=== PATIENT | female | born 1960 | race Two or more races ===

== ENCOUNTER 2020-07-29 07:04 | Outpatient (REF) | payer OTHER, SELFPAY ==
[2020-07-29 08:02] LABS: Hemoglobin 14.5 g/dl (12.0-16.0); Mean Corpuscular HGB Conc 33.7 g/dl (31.0-35.0); Mean Corpuscular Hemoglobin 28.3 pg (27.0-33.0); Mean Platelet Volume 10.9 fL (9.4-12.3); Platelet Count 206 X10*3/uL (160-400); Red Blood Count 5.12 X10*6/uL (4.20-5.50); Red Cell Distribution Width 12.6 % (11.0-16.0); White Blood Count 3.4 X10*3/uL (4.8-10.8)
[2020-07-29 08:23] LABS: Alanine Aminotransferase 33 U/L (0-31); Albumin Level 4.2 g/dL (3.5-5.0); Alkaline Phosphatase 65 U/L (39-117); Anion Gap 13 (12-20); Aspartate Amino Transferase 22 U/L (5-31); Bilirubin Total 0.8 mg/dL (0.0-1.0); Blood Urea Nitrogen 14 mg/dL (9-16); Carbon Dioxide 30 mmol/L (22-29); Chloride 103 mmol/L (96-108); Estimated Glomerular Filt Rate > 60; Glucose Fasting 134 mg/dL (60-99); Potassium 4.5 mmol/L (3.3-5.1); Sodium 141 mmol/L (135-145); Total Protein 7.4 g/dL (6.5-8.0)
[2020-08-02 12:27] LABS: Vitamin D 25-OH, D2 7 ng/mL; Vitamin D 25-OH, D3 21 ng/mL; Vitamin D 25-OH, Total 28 ng/mL (30-100)
== END 2020-07-29 07:05 | disposition home or self-care (01) ==
LOC: HO.LAB 07:04
PROVIDERS: PCP Internal Medicine; Visit Provider Internal Medicine
DX: G57.10 Meralgia paresthetica, unspecified lower limb (principal); E55.9 Vitamin D deficiency, unspecified
CPT/HCPCS: 36415; 80053; 82306; 85027

== ENCOUNTER → 2020-08-08 08:20 | Outpatient (BNV) | payer OTHER, SELFPAY | PROVIDERS: PCP Internal Medicine; Referring Provider Internal Medicine; Visit Provider Internal Medicine | DX: D72.819 Decreased white blood cell count, unspecified (principal) | CPT/HCPCS: 99203; 99213; 99441 ==

== ENCOUNTER 2020-09-09 07:47 | Outpatient (REF) | payer OTHER, SELFPAY ==
[2020-09-09 08:45] LABS: Alanine Aminotransferase 36 U/L (0-31); Albumin Level 4.3 g/dL (3.5-5.0); Alkaline Phosphatase 70 U/L (39-117); Anion Gap 14 (12-20); Aspartate Amino Transferase 24 U/L (5-31); Bilirubin Total 0.6 mg/dL (0.0-1.0); Blood Urea Nitrogen 20 mg/dL (9-16); Calcium 8.8 mg/dL (8.4-10.2); Carbon Dioxide 27 mmol/L (22-29); Chloride 104 mmol/L (96-108); Estimated Glomerular Filt Rate > 60; Glucose Fasting 128 mg/dL (60-99); Potassium 4.7 mmol/L (3.3-5.1); Sodium 140 mmol/L (135-145); Total Protein 7.7 g/dL (6.5-8.0)
[2020-09-09 08:50] LABS: Estimated Average Glucose 126 mg/dL
== END 2020-09-09 07:48 | disposition home or self-care (01) ==
LOC: HO.LAB 07:47
PROVIDERS: PCP Internal Medicine; Visit Provider Internal Medicine
DX: E11.40 Type 2 diabetes mellitus with diabetic neuropathy, unspecified (principal)
CPT/HCPCS: 36415; 80053; 83036

== ENCOUNTER 2021-01-06 07:03 | Outpatient (REF) | payer OTHER, SELFPAY ==
[2021-01-06 08:20] LABS: MANUAL DIFF FLAG NO
[2021-01-06 08:25] LABS: Basophils Percent Auto 0.8 % (0-2); Eosinophils Absolute Auto 0.1 X10*3/uL (0.0-0.4); Eosinophils Percent Auto 1.6 % (0-4); Hematocrit 43.2 % (37-47); Hemoglobin 14.7 g/dl (12.0-16.0); Imm Gran Abs Auto 0.01 X10*3/uL (0.00-0.03); Imm Gran Pct Auto 0.3 % (0.0-0.4); Lymphocytes Absolute Auto 1.3 X10*3/uL (1.2-4.9); Lymphocytes Percent Auto 34.5 % (20-40); Mean Corpuscular Hemoglobin 28.5 pg (27.0-33.0); Mean Corpuscular Volume 83.7 fL (80-98); Mean Platelet Volume 11.3 fL (9.4-12.3); Monocytes Absolute Auto 0.3 X10*3/uL (0.1-1.2); Monocytes Percent Auto 7.5 % (2-11); Neutrophils Absolute Auto 2.1 X10*3/uL (2.0-8.3); Neutrophils Percent Auto 55.3 % (45-73); Platelet Count 228 X10*3/uL (160-400); Red Blood Count 5.16 X10*6/uL (4.20-5.50); Red Cell Distribution Width 12.8 % (11.0-16.0); White Blood Count 3.7 X10*3/uL (4.8-10.8)
[2021-01-06 08:58] LABS: Alanine Aminotransferase 36 U/L (0-31); Albumin Level 4.4 g/dL (3.5-5.0); Alkaline Phosphatase 66 U/L (39-117); Anion Gap 15 (12-20); Aspartate Amino Transferase 22 U/L (5-31); Bilirubin Total 0.7 mg/dL (0.0-1.0); Blood Urea Nitrogen 15 mg/dL (9-16); Calcium 9.6 mg/dL (8.4-10.2); Carbon Dioxide 26 mmol/L (22-29); Chloride 103 mmol/L (96-108); Cholesterol 195 mg/dL; Estimated Glomerular Filt Rate > 60; Glucose Fasting 114 mg/dL (60-99); HDL Cholesterol 42 mg/dL; LDL Cholesterol Calculated 130 mg/dl; Potassium 4.3 mmol/L (3.3-5.1); Sodium 140 mmol/L (135-145); Total Protein 7.5 g/dL (6.5-8.0); Triglycerides 115 mg/dL
[2021-01-08 08:37] LABS: Folate 18.2 ng/mL (> or = 4.0); Vitamin B12 929 pg/mL (200-900)
[2021-01-10 19:06] LABS: Vitamin D 25-OH, D2 <4 ng/mL; Vitamin D 25-OH, D3 29 ng/mL; Vitamin D 25-OH, Total 29 ng/mL (30-100)
== END 2021-01-06 07:04 | disposition home or self-care (01) ==
LOC: HO.LAB 07:03
PROVIDERS: PCP Internal Medicine; Visit Provider Internal Medicine
DX: E78.5 Hyperlipidemia, unspecified (principal); R73.02 Impaired glucose tolerance (oral); D64.9 Anemia, unspecified; D72.819 Decreased white blood cell count, unspecified; E55.9 Vitamin D deficiency, unspecified; E53.8 Deficiency of other specified B group vitamins
CPT/HCPCS: 36415; 80053; 80061; 82306; 82607; 82746; 85025

== ENCOUNTER 2021-07-14 09:28 | Outpatient (REF) | payer OTHER, SELFPAY ==
[2021-07-14 10:35] LABS: Alanine Aminotransferase 25 U/L (0-31); Albumin Level 4.2 g/dL (3.5-5.0); Alkaline Phosphatase 67 U/L (39-117); Anion Gap 12 (12-20); Aspartate Amino Transferase 20 U/L (5-31); Bilirubin Total 0.9 mg/dL (0.0-1.0); Blood Urea Nitrogen 16 mg/dL (9-16); Calcium 9.5 mg/dL (8.4-10.2); Carbon Dioxide 27 mmol/L (22-29); Chloride 107 mmol/L (96-108); Estimated Glomerular Filt Rate > 60; Glucose Fasting 121 mg/dL (60-99); Potassium 4.1 mmol/L (3.3-5.1); Sodium 142 mmol/L (135-145); Total Protein 7.5 g/dL (6.5-8.0)
[2021-07-14 11:58] LABS: Folate > 20.0 ng/mL (> or = 4.0); Vitamin B12 665 pg/mL (200-900)
[2021-07-18 13:26] LABS: Vitamin D 25-OH, D2 4 ng/mL; Vitamin D 25-OH, D3 22 ng/mL; Vitamin D 25-OH, Total 26 ng/mL (30-100)
== END 2021-07-14 09:29 | disposition home or self-care (01) ==
LOC: HO.LAB 09:28
PROVIDERS: PCP Internal Medicine; Visit Provider Internal Medicine
DX: R73.02 Impaired glucose tolerance (oral) (principal); E53.8 Deficiency of other specified B group vitamins; E55.9 Vitamin D deficiency, unspecified
CPT/HCPCS: 36415; 80053; 82306; 82607; 82746

== ENCOUNTER 2022-02-09 07:50 | Outpatient (REF) | payer OTHER, SELFPAY ==
[2022-02-09 09:56] LABS: Alanine Aminotransferase 30 U/L (0-31); Albumin Level 4.3 g/dL (3.5-5.0); Alkaline Phosphatase 69 U/L (39-117); Anion Gap 14 (12-20); Aspartate Amino Transferase 21 U/L (5-31); Bilirubin Total 0.6 mg/dL (0.0-1.0); Blood Urea Nitrogen 12 mg/dL (9-16); Calcium 9.3 mg/dL (8.4-10.2); Carbon Dioxide 28 mmol/L (22-29); Chloride 104 mmol/L (96-108); Cholesterol 189 mg/dL; Estimated Glomerular Filt Rate > 60; Glucose Fasting 122 mg/dL (60-99); HDL Cholesterol 51 mg/dL; LDL Cholesterol Calculated 124 mg/dl; Potassium 4.6 mmol/L (3.3-5.1); Sodium 141 mmol/L (135-145); Total Protein 7.5 g/dL (6.5-8.0); Triglycerides 70 mg/dL
[2022-02-09 10:24] LABS: Folate 17.2 ng/mL (> or = 4.0); Vitamin B12 391 pg/mL (200-900)
[2022-02-09 10:59] LABS: Vitamin D 25-OH Total 22.2 ng/mL (>30)
== END 2022-02-09 07:51 | disposition home or self-care (01) ==
LOC: HO.LAB 07:50
PROVIDERS: PCP Internal Medicine; Visit Provider Internal Medicine
DX: Z00.00 Encounter for general adult medical examination without abnormal findings (principal); E55.9 Vitamin D deficiency, unspecified; E53.8 Deficiency of other specified B group vitamins
CPT/HCPCS: 36415; 80053; 80061; 82306; 82607; 82746

== ENCOUNTER 2022-03-11 08:57 | Day surgery (SDC) | payer OTHER, SELFPAY ==
[2022-03-05 15:00] VITALS: BMI 33.5
[2022-03-11 11:02] VITALS: BP 190/94; PULSE 71; RESP 18; O2SAT 97
[2022-03-11 11:33] VITALS: BP 174/75; PULSE 69; RESP 18; TEMP 36.6; O2SAT 99
--- NOTE | 2022-03-11 11:33 | MHC.SHP ---
Pre-Procedural Eval Section A Date of Service: 03/11/22 The patient is an INPATIENT: No Changes since office visit: No Cold of Flu in the past 2 weeks, No New Medical Problems, No Changes in Medication and No Patient answered all questions The History & Physical has been completed within 30 days and I have reviewed it.: Yes Section B Chief Complaint: Trigger finger, right ring finger Allergies: Allergies Allergy/AdvReac Type Severity Reaction Status Date / Time No Known Allergies Allergy Verified 03/11/22 11:03 Plan I have reviewed the history and physical and performed a pertinent physical examination on my patient. No changes have occurred unless specified.
[2022-03-11 11:40] VITALS: BP 163/74
--- NOTE | 2022-03-11 12:22 | P.OP_ITS ---
Operative Note Operative Note Date of Service: 03/11/22 Narrative: Operative Note Preop diagnosis: 1. right ring finger Trigger finger Postop diagnosis: 1. right ring finger Trigger finger Procedure: 1. right ring finger A1 cj release Surgeon: Raquel Garcia MD Anesthesia: local block using 1% lidocaine with epinephrine Findings: No locking or catching after A1 cj release EBL: Less than 5 mL Tourniquet time: None Specimens: None Complications: None Disposition: Brought to recovery room in stable condition Plan: Follow-up for 10-14 days for wound check and suture removal Indications: The patient is 62 years old, with a right ring finger trigger finger that has been unresponsive to nonoperative management. The risks and benefits of operative treatment including but not limited to risk of damage to blood vessels, nerves, tendons, infection, persistent pain, persistent symptoms, recurrence or possible need for additional surgery were discussed with the patient and the patient wishes to proceed with surgery. Procedure: Once consent was obtained a local block was performed in the preop area using a combination of 1% lidocaine with epinephrine. The patient was then brought back to the operating suite and placed on the operative table in supine position. A tourniquet was applied to the proximal aspect of the right upper extremity and the limb was prepped and draped in a standard surgical fashion. Once assured that we had a good block, a 1.5 cm oblique incision was made centered over the A1 cj of the right ring finger . The incision was made through the skin to the subcutaneous tissues using a #15 blade. Careful dissection was made down to the level of the A1 cj using tenotomy scissors, with care being taken to protect the nearby neurovascular structures. A longitudinal incision was made in the A1 cj 1st using a #15 blade, then using tenotomy scissors under direct visualization. The A1 cj was noted to be thickened. Following our A1 cj release, we no longer saw any locking or catching of the digit with flexion and extension. Once satisfied with our A1 cj release the wound was copiously irrigated with normal saline and hemostasis was obtained with a brief period of local pressure. The skin edges were reapproximated with some 5.0 nylon suture material and a sterile dressing was applied. The patient appears to have tolerated the procedure well and with no co mplications. All digits were well vascularized at the conclusion of the case.
== END 2022-03-11 12:30 | disposition home or self-care (01) ==
PROVIDERS: PCP Internal Medicine; Visit Provider Orthopaedic Surgery
PROC: (CPT 26055; principal; 2022-03-11 11:20)
DX: M65.341 Trigger finger, right ring finger (principal); E53.8 Deficiency of other specified B group vitamins; E55.9 Vitamin D deficiency, unspecified; R73.02 Impaired glucose tolerance (oral); D72.819 Decreased white blood cell count, unspecified; G57.10 Meralgia paresthetica, unspecified lower limb; Z79.899 Other long term (current) drug therapy
CPT/HCPCS: 26055; J0171

== ENCOUNTER 2022-08-31 09:49 | Outpatient (REF) | payer OTHER, SELFPAY ==
[2022-08-31 10:04] LABS: MANUAL DIFF FLAG NO
[2022-08-31 10:36] LABS: Basophils Percent Auto 0.8 % (0-2); Eosinophils Absolute Auto 0.1 X10*3/uL (0.0-0.4); Eosinophils Percent Auto 1.6 % (0-4); Hematocrit 38.6 % (37.0-47.0); Hemoglobin 12.9 g/dl (12.0-16.0); Imm Gran Abs Auto 0.01 X10*3/uL (0.00-0.03); Imm Gran Pct Auto 0.3 % (0.0-0.4); Lymphocytes Absolute Auto 1.2 X10*3/uL (1.2-4.9); Lymphocytes Percent Auto 31.2 % (20-40); Mean Corpuscular HGB Conc 33.4 g/dl (31.0-35.0); Mean Corpuscular Volume 83.9 fL (80.0-98.0); Mean Platelet Volume 11.3 fL (9.4-12.3); Monocytes Absolute Auto 0.2 X10*3/uL (0.1-1.2); Monocytes Percent Auto 6.5 % (2-11); Neutrophils Absolute Auto 2.2 x10*3/uL (2.0-8.3); Neutrophils Percent Auto 59.6 % (45-73); Platelet Count 203 X10*3/uL (160-400); Red Cell Distribution Width 13.5 % (11.0-16.0); White Blood Count 3.7 X10*3/uL (4.8-10.8)
[2022-08-31 11:17] LABS: Alanine Aminotransferase 47 U/L (0-31); Albumin Level 3.8 g/dL (3.5-5.0); Alkaline Phosphatase 67 U/L (39-117); Anion Gap 11 (12-20); Aspartate Amino Transferase 28 U/L (5-31); Bilirubin Total 0.6 mg/dL (0.0-1.0); Blood Urea Nitrogen 17 mg/dL (9-16); Calcium 8.8 mg/dL (8.4-10.2); Carbon Dioxide 28 mmol/L (22-29); Chloride 104 mmol/L (96-108); Estimated Glomerular Filt Rate > 60; Glucose Fasting 105 mg/dL (60-99); Potassium 4.3 mmol/L (3.3-5.1); Sodium 139 mmol/L (135-145); Total Protein 7.4 g/dL (6.5-8.0)
[2022-08-31 11:36] LABS: Folate 14.1 ng/mL (> or = 4.0); Vitamin B12 512 pg/mL (200-900); Vitamin D 25-OH Total 27.2 ng/mL (>30)
== END 2022-08-31 09:50 | disposition home or self-care (01) ==
LOC: HO.LAB 09:49
PROVIDERS: PCP Internal Medicine; Visit Provider Internal Medicine
DX: E53.8 Deficiency of other specified B group vitamins (principal); R73.02 Impaired glucose tolerance (oral); E55.9 Vitamin D deficiency, unspecified; D64.9 Anemia, unspecified; D72.819 Decreased white blood cell count, unspecified
CPT/HCPCS: 36415; 80053; 82306; 82607; 82746; 85025

== ENCOUNTER 2023-01-25 09:40 | Outpatient (REF) | payer OTHER, SELFPAY ==
[2023-01-25 11:22] LABS: Alanine Aminotransferase 27 U/L (0-31); Albumin Level 4.4 g/dL (3.5-5.0); Alkaline Phosphatase 64 U/L (39-117); Anion Gap 12 (12-20); Aspartate Amino Transferase 21 U/L (5-31); Bilirubin Total 0.8 mg/dL (0.0-1.0); Blood Urea Nitrogen 15 mg/dL (9-16); Carbon Dioxide 28 mmol/L (22-29); Chloride 104 mmol/L (96-108); Cholesterol 206 mg/dL; Estimated Glomerular Filt Rate > 60; Glucose Fasting 129 mg/dL (60-99); HDL Cholesterol 52 mg/dL; LDL Cholesterol Calculated 132 mg/dl; Sodium 140 mmol/L (135-145); Total Protein 7.9 g/dL (6.5-8.0); Triglycerides 112 mg/dL
[2023-01-25 11:37] LABS: Vitamin D 25-OH Total 37.4 ng/mL (>30)
[2023-01-25 11:48] LABS: Folate 14.7 ng/mL (> or = 4.0); Vitamin B12 396 pg/mL (200-900)
== END 2023-01-25 09:41 | disposition home or self-care (01) ==
LOC: HO.LAB 09:40
PROVIDERS: PCP Internal Medicine; Visit Provider Internal Medicine
DX: E55.9 Vitamin D deficiency, unspecified (principal); I10 Essential (primary) hypertension; E53.8 Deficiency of other specified B group vitamins; E78.5 Hyperlipidemia, unspecified
CPT/HCPCS: 36415; 80053; 80061; 82306; 82607; 82746

== ENCOUNTER 2023-01-29 16:37 | Outpatient (AMB) | payer OTHER, SELFPAY ==
[2023-01-29 16:41] VITALS: BP 140/80; BMI 33.5
--- NOTE | 2023-01-29 16:41 | MHC.PC.OV ---
Vital Signs 01/29/23 16:41 Height 5 ft 4 in Weight 195 lb BMI 33.5 BP 140/80 H Blood Pressure Location Lt brachial Position Sitting Intake Visit Reasons: PE Intake Note: Patient here for a physical exam Immigration Case Manager Required: No Accompanied by: Self / Same As Patient Allergies No Known Allergies Allergy (Verified 01/29/23 16:51) Medication List - Last Reconciled 01/29/23 by Cassandra Disla MD cholecalciferol (vitamin D3) 25 mcg PO DAILY 90 days lisinopril 30 mg PO DAILY 90 days Tobacco use date assessed: 09/02/22 Dental Screening Dental Screen Date: 01/29/23 Did you have a dental visit in the last 12 months?: Yes Did you have a dental problem in the last 6 months where you did not have access to dental care?: No Was dental information given to patient?: Patient has dentist HPI HPI Comments History of Present Illness Details This is a 62-year-old female that comes for her physical exam. Mammogram was over a year ago. Has never had a bone density. Last colonoscopy was 2011 and I will order Cologuard. Has impaired glucose tolerance but denies any polyuria, polydipsia or unintentional weight loss. Occasional dizziness that resolved with meclizine. Blood pressure borderline and I will increase lisinopril from 30 mg to 40 mg. Blood pressure will be recheck in 3 weeks by nurse navigator. [facility] Medical History (Updated 01/29/23 @ 17:04 by Cassandra Disla MD) B12 deficiency Hypovitaminosis D Impaired glucose tolerance Leukopenia Meralgia paresthetica Trigger finger Surgical History (Updated 01/29/23 @ 16:55 by Cassandra Disla MD) H/O right knee surgery History of fusion of cervical spine History of tubal ligation Status post excision of lipoma Family History (Updated 01/29/23 @ 16:56 by Cassandra Disla MD) Father Bladder cancer Mother Diabetes Alzheimer's dementia Maternal Grandmother Hypertension Paternal Uncle Bone cancer Sister Stroke Diabetes Daughter Asthma Brother Diabetes Brother Diabetes Social History Household Members: Significant Other, Family and Children Housing: House Alcohol intake: never Patient Tobacco Use Status: Never used Tobacco e-Cigarette/Vaping Use: Never Used Second Hand Smoke Exposure: No service: No Current occupational status: employed Current occupation: rt hand / print shop Current occupational exposures/hazards: No Cognitive needs: No Hearing needs: No Vision needs: No Questionnaire Thrive Questionnaire Date Thrive assessed: 09/02/22 MAYCOL-7 AMB Questionnaire MAYCOL-7 Date MAYCOL - 7 assessed: 09/02/22 Source: Developed by Drs. Jadiel Green, Rosa Maria Gerard, Ronan Caballero and colleagues, with an educational christa from [employer]. Review of Systems Const All systems reviewed & are unremarkable except as noted in HPI and below Eyes Reports no additional complaints, Denies change in vision and Denies other visual disturbances Card Denies chest pain at rest, Denies chest pain with activity, Denies edema, Denies irregular heart rhythm, Denies claudication, Denies dyspnea, Denies dyspnea on exertion, Denies orthopnea, Denies paroxysmal nocturnal dyspnea and Denies slow heart rate Resp Denies cough, Denies dyspnea and Denies dyspnea on exertion GI Denies abdominal pain, Denies change in bowel habits, Denies excessive flatus, Denies nausea and Denies vomiting Denies urinary incontinence, Denies urinary hesitancy and Denies urinary urgency Musc Denies abnormal gait, Denies atrophy, Denies deformity and Denies limited range of motion Skin/Breast Denies bleeding lesions, Denies changing lesions and Denies rash Neuro Denies abnormal gait and Denies lack of coordination Physical exam (Primary Care) Vital Signs: Last Vital Signs BP 140/80 H 01/29/23 16:41 BMI result Body Mass Index 33.5 Tobacco/Smoking Status: Tobacco use Status Tobacco use date assessed 09/02/22 01/29/23 16:46 Patient Tobacco Use Status Never used Tobacco 01/29/23 16:46 e-Cigarette/Vaping Use Never Used 01/29/23 16:46 Thrive Assessment: Date of Thrive Assessment Date Thrive assessed 09/02/22 01/29/23 16:46 Const Orientation/consciousness: patient oriented x3 HENMT Head: Yes normal to inspection, Yes normocephalic and Yes atraumatic Ears: external ears normal Mouth: lip normal Eyes General: appearance normal, both eyes and all related structures Eyelids: Yes eyelids normal Conjunctivae: conjunctivae normal Neck Neck: Yes normal visual inspection and Yes supple Resp Effort & Inspection: normal respiratory effort Auscultation: clear to auscultation bilaterally Cardio Jugular venous distension: no JVD Rate: regular rate Rhythm: regular rhythm Heart sounds: S1 normal heart sound present and S2 normal heart sound present GI Inspection: Yes normal to inspection Palpation (GI): Soft to palpation and nontender Auscultation: normal bowel sounds Skin General skin exam: no rashes or lesions noted Neuro General: patient oriented x3 and no focal motor deficits Extrem General: Yes full ROM Psych Appearance: grossly normal Assessment and Plan Assessment & Plan (1) Encounter for physical examination: Code(s): Z00.00 - Encounter for general adult medical examination without abnormal findings Plan: Repeat in a year Orders: Orders Comprehensive [place]. Panel Fast 4 Months R73.02 - Impaired glucose tolerance (oral) XR DEXA axial skeleton Today N95.9 - Unspecified menopausal and perimenopausal disorder MM screening mammo BI Today Z12.31 - Encounter for screening mammogram for malignant neoplasm of breast XR foot LT 2V Today M79.672 - Pain in left foot Referrals Cologuard Test Z12.11 - Encounter for screening for malignant neoplasm of colon, Z12.12 - Encounter for screening for malignant neoplasm of rectum Medications: New lisinopril 40 mg PO DAILY 90 tabs 1RF 90 days meclizine 25 mg PO DAILY PRN 7 tabs 0RF motion sickness 7 days Discontinued lisinopril Discontinued Reason: Patient Completed Course 30 mg PO DAILY 90 days 90 tabs 1RF Coding Level of Care Code Est Pt Prev Care 40-64y(91593) Diagnoses Encounter for physical examination Z00.00 Time Spent (min) 32
== END 2023-01-29 17:08 | disposition home or self-care (01) ==
PROVIDERS: PCP Internal Medicine; Visit Provider Internal Medicine
DX: Z00.00 Encounter for general adult medical examination without abnormal findings (principal)
CPT/HCPCS: 99396

== ENCOUNTER 2023-02-21 14:14 | Outpatient (REF) | payer OTHER, SELFPAY ==
--- NOTE | ~2023-02-21 | MM_ITS ---
EXAMINATION: BONE DENSITOMETRY CLINICAL INDICATION: Unspecified menopausal and perimenopausal disorder. COMPARISON: Baseline BD dated 02/25/2017. TECHNIQUE: Using a [employer] DXA System (software version: 13.1) manufactured by [employer], dual-energy x-ray absorptiometry was performed of the lumbar spine and left hip. The images are of good technical quality. Summary results are attached. FINDINGS: LEFT FEMUR, NECK: Current: BMD 0.785 g/cm2, Z-score -1.0, T-score -1.8, osteopenia. Baseline: BMD 0.911 g/cm2. LEFT FEMUR, TOTAL: Current: BMD 0.913 g/cm2, Z-score -0.3, T-score -0.8, normal, 8.2% decrease from baseline (<5% change is not significant). Baseline: BMD 0.995 g/cm2. AP SPINE L1-L4: Current: BMD 1.098 g/cm2, Z-score -0.1, T-score -0.7, normal, 6.9% decrease from baseline (<5% change is not significant). Baseline: BMD 1.180 g/cm2. IDENTIFIED RISK FACTORS: Menopause. HISTORY OF FRACTURE: None listed. MEDICATIONS: Vitamin D. MM/XR DEXA axial skeleton IMPRESSION: 1. DIAGNOSIS: Osteopenia based on the lowest T-score value of -1.8 in the femoral neck applying World Health Organization criteria. 2. 10-YEAR FRACTURE RISK PREDICTION, FRAX: Major osteoporotic fracture (clinical spine, forearm, hip or shoulder) 4.9%. Hip fracture 0.6%. 3. Treatment Recommendations: NOF guidelines recommend consideration for treatment in postmenopausal women and men age 50 and older presenting with the following: -A hip or vertebral (clinical or morphometric) fracture. -T-score less than or equal to -2.5 at the femoral neck or spine after appropriate evaluation to exclude secondary causes. -Low bone mass at the hip or spine and a 10-year fracture probability by FRAX of greater than or equal to 3% for hip fracture or greater than or equal to 20% for major osteoporotic fracture based on the [place] adapted WHO algorithm. 4. Other Recommendations: All treatment decisions require clinical judgment and consideration of individual patient factors, including patient preferences, comorbidities, previous drug use, risk factors not captured in the FRAX model (e.g. frailty, falls, vitamin D deficiency, increased bone turnover, interval significant decline in bone density) and possible under or overestimation of fracture risk by FRAX. Additional medical evaluation for secondary cause of low bone mineral density may be appropriate. FUTURE SCAN RECOMMENDATION: People with diagnosed cases of osteoporosis or at high risk for fracture should have regular bone mineral density tests. For patients eligible for Medicare, routine testing is allowed once every 2 years. The testing frequency can be increased to one year for patients who have rapidly progressing disease, those who are receiving or discontinuing medical therapy to restore bone mass, or have additional risk factors.
== END 2023-02-21 14:15 | disposition home or self-care (01) ==
LOC: HO.MAMMO 14:14
PROVIDERS: PCP Internal Medicine; Visit Provider Internal Medicine
DX: Z13.820 Encounter for screening for osteoporosis (principal); Z78.0 Asymptomatic menopausal state
CPT/HCPCS: 77080

== ENCOUNTER → 2023-02-21 14:30 | Outpatient (BNV) | payer OTHER, SELFPAY | PROVIDERS: PCP Internal Medicine; Visit Provider Radiology Diagnostic Radiology | DX: M85.852 Other specified disorders of bone density and structure, left thigh (principal); N95.9 Unspecified menopausal and perimenopausal disorder | CPT/HCPCS: 77080 ==

== ENCOUNTER 2023-03-01 09:38 | Outpatient (REF) | payer OTHER, SELFPAY | END 2023-03-01 09:39 | disposition home or self-care (01) | LOC: HO.MAMMO 09:38 | PROVIDERS: PCP Internal Medicine; Visit Provider Internal Medicine | DX: Z12.31 Encounter for screening mammogram for malignant neoplasm of breast (principal) | CPT/HCPCS: 77063; 77067 ==

== ENCOUNTER → 2023-03-01 10:00 | Outpatient (BNV) | payer OTHER, SELFPAY | PROVIDERS: PCP Internal Medicine; Visit Provider Radiology Diagnostic Radiology | DX: Z12.31 Encounter for screening mammogram for malignant neoplasm of breast (principal) | CPT/HCPCS: 77063; 77067 ==

== ENCOUNTER 2023-06-03 15:37 | Outpatient (AMB) | payer OTHER, SELFPAY ==
--- NOTE | 2023-06-03 15:41 | MHC.PC.OV ---
Vital Signs 06/03/23 15:42 Height 5 ft 4 in Weight 193 lb BMI 33.1 BP 120/80 Blood Pressure Location Lt brachial Position Sitting Intake Visit Reasons: bp Intake Note: Patient here for a follow up BP Interviewing Clerk Required: No Accompanied by: Self / Same As Patient Allergies No Known Allergies Allergy (Verified 06/03/23 15:47) Medication List - Last Reconciled 06/03/23 by Cassandra Disla MD cholecalciferol (vitamin D3) 25 mcg PO DAILY 90 days lisinopril 40 mg PO DAILY 90 days Tobacco use date assessed: 09/02/22 Dental Screening Dental Screen Date: 06/03/23 Did you have a dental visit in the last 12 months?: Yes Did you have a dental problem in the last 6 months where you did not have access to dental care?: No Was dental information given to patient?: Patient has dentist HPI HPI Comments History of Present Illness Details This is a 63-year-old female with hypertension, osteopenia, impaired glucose tolerance and low vitamin-D that comes today for follow-up on her conditions. Blood pressure stable. Vitamin-D levels, lipid panel and fasting blood glucose will be ordered. She denies any polyuria or polydipsia. No unintentional weight loss. Had bone density test showing osteopenia and calcium with vitamin-D will be started. No chest pain or shortness of breath. COUNT INCLUDES [facility] Medical History (Updated 06/03/23 @ 15:58 by Cassandra Disla MD) Trigger finger B12 deficiency Leukopenia Impaired glucose tolerance Meralgia paresthetica Hypovitaminosis D Surgical History H/O right knee surgery History of fusion of cervical spine Status post excision of lipoma History of tubal ligation Family History Father Bladder cancer Mother Diabetes Alzheimer's dementia Maternal Grandmother Hypertension Paternal Uncle Bone cancer Sister Stroke Diabetes Daughter Asthma Brother Diabetes Brother Diabetes Social History Household Members: Significant Other, Family and Children Housing: House Alcohol intake: never Patient Tobacco Use Status: Never used Tobacco e-Cigarette/Vaping Use: Never Used Second Hand Smoke Exposure: No service: No Current occupational status: employed Current occupation: rt hand / print shop Current occupational exposures/hazards: No Cognitive needs: No Hearing needs: No Vision needs: No Questionnaire Thrive Questionnaire Date Thrive assessed: 09/02/22 MAYCOL-7 AMB Questionnaire MAYCOL-7 Date MAYCOL - 7 assessed: 09/02/22 Source: Developed by Drs. Jadiel Green, Rosa Maria Gerard, Ronan Caballero and colleagues, with an educational christa from [employer]. Review of Systems Const All systems reviewed & are unremarkable except as noted in HPI and below Eyes Reports no additional complaints, Denies change in vision and Denies other visual disturbances Card Denies chest pain at rest, Denies chest pain with activity, Denies edema, Denies irregular heart rhythm, Denies claudication, Denies dyspnea, Denies dyspnea on exertion, Denies orthopnea, Denies paroxysmal nocturnal dyspnea and Denies slow heart rate Resp Denies cough, Denies dyspnea and Denies dyspnea on exertion GI Denies abdominal pain, Denies change in bowel habits, Denies excessive flatus, Denies nausea and Denies vomiting Denies urinary incontinence, Denies urinary hesitancy and Denies urinary urgency Musc Denies abnormal gait, Denies atrophy, Denies deformity and Denies limited range of motion Skin/Breast Denies bleeding lesions, Denies changing lesions and Denies rash Neuro Denies abnormal gait, Denies behavioral changes and Denies lack of coordination Psych Denies behavioral changes Physical exam (Primary Care) Vital Signs: Last Vital Signs BP 120/80 06/03/23 15:42 BMI result Body Mass Index 33.1 Tobacco/Smoking Status: Tobacco use Status Tobacco use date assessed 09/02/22 06/03/23 15:42 Patient Tobacco Use Status Never used Tobacco 06/03/23 15:42 e-Cigarette/Vaping Use Never Used 06/03/23 15:42 Thrive Assessment: Date of Thrive Assessment Date Thrive assessed 09/02/22 06/03/23 15:42 Eyes General: appearance normal, both eyes and all related structures Eyelids: Yes eyelids normal Conjunctivae: conjunctivae normal Neck Neck: Yes normal visual inspection and Yes supple Resp Effort & Inspection: normal respiratory effort Auscultation: clear to auscultation bilaterally Cardio Jugular venous distension: no JVD Rate: regular rate Rhythm: regular rhythm Heart sounds: S1 normal heart sound present and S2 normal heart sound present Extrem General: Yes full ROM Office Procedures Flu Questionnaire Does the patient have a severe egg allergy?: No Immunizations flu vacc [id number] 6mos up(PF) 60 mcg(15 mcgx4)/0.5 mL IM syringe Performing Provider: Cassandra Disla MD [facility] Documented (not given) by: Pauly Stanley Luis A on 06/03/23 15:46 Reason Not Given: Patient Refused Assessment and Plan Assessment & Plan (1) Osteopenia: Code(s): M85.80 - Other specified disorders of bone density and structure, unspecified site Qualifiers: Osteopenia location: unspecified Qualified Code(s): M85.80 - Other specified disorders of bone density and structure, unspecified site Plan: Start calcium with vitamin-D. (2) Essential hypertension: Code(s): I10 - Essential (primary) hypertension Plan: Continue lisinopril. Blood pressure goal is equal or less than 130/80. (3) Impaired glucose tolerance: Code(s): R73.02 - Impaired glucose tolerance (oral) Plan: Repeat fasting blood glucose. (4) Hypovitaminosis D: Code(s): E55.9 - Vitamin D deficiency, unspecified Plan: Continue vitamin-D supplements. Orders: Orders Lipid Panel Today E78.5 - Hyperlipidemia, unspecified Influenza [id number] Immunization Today Z23 - Encounter for immunization Vitamin D 25-OH Total Today E55.9 - Vitamin D deficiency, unspecified Comprehensive [place]. Panel Fast Today R73.02 - Impaired glucose tolerance (oral) Vitamin B12 and Folate Today E53.8 - Deficiency of other specified B group vitamins Medications: New calcium carbonate 600 mg PO BID 180 tabs 3RF 90 days M85.80 - Other specified disorders of bone density and structure, unspecified site Refilled cholecalciferol (vitamin D3) 25 mcg PO DAILY 90 caps 1RF 90 days E53.8 - Deficiency of other specified B group vitamins lisinopril 40 mg PO DAILY 90 tabs 1RF 90 days E53.8 - Deficiency of other specified B group vitamins Coding Level of Care Code Est Pt Level 4 (03590) Diagnoses Osteopenia, unspecified location M85.80 Osteopenia location: unspecified Essential hypertension I10 Impaired glucose tolerance R73.02 Hypovitaminosis D E55.9 Time Spent (min) 23
[2023-06-03 15:42] VITALS: BP 120/80; BMI 33.1
== END 2023-06-03 15:53 | disposition home or self-care (01) ==
PROVIDERS: PCP Internal Medicine; Visit Provider Internal Medicine
DX: M85.80 Other specified disorders of bone density and structure, unspecified site (principal); I10 Essential (primary) hypertension; R73.02 Impaired glucose tolerance (oral); E55.9 Vitamin D deficiency, unspecified
CPT/HCPCS: 99214

== ENCOUNTER 2024-02-04 16:39 | Outpatient (AMB) | payer OTHER, SELFPAY ==
[2024-02-04 16:46] VITALS: BP 130/72; BMI 34.5
--- NOTE | 2024-02-04 16:46 | A.OFFPC_ITS ---
Vital Signs 02/04/24 16:46 Height 5 ft 4 in Weight 201 lb BMI 34.5 BP 130/72 Blood Pressure Location Lt brachial Position Sitting Intake Visit Reasons: pe Intake Note: Patient here for a physical exam Nnp Required: No Accompanied by: Self / Same As Patient Allergies No Known Allergies Allergy (Verified 02/04/24 17:06) Medication List - Last Reconciled 02/04/24 by Cassandra Disla MD calcium carbonate 600 mg PO BID 90 days cholecalciferol (vitamin D3) 25 mcg PO DAILY 90 days lisinopril 40 mg PO DAILY 90 days Tobacco use date assessed: 02/04/24 Dental Screening Dental Screen Date: 02/04/24 Did you have a dental visit in the last 12 months?: Yes Did you have a dental problem in the last 6 months where you did not have access to dental care?: No Was dental information given to patient?: Patient has dentist HPI HPI Comments History of Present Illness Details This is a 63-year-old female that comes for her physical exam. Mammogram done 2022 and was normal. Cologuard done 2022 was negative. Pap smear done long time ago with biopsy in 2018. Will be referred to OBGYN for this matter. DEXA scan done 2022 shows osteopenia and is on calcium with vitamin-D. DEXA scan will be repeated 2024. She complains of left knee pain and weakness that started few months ago. No previous trauma. Will be referred to Ortho Hand order an x-ray. COUNTS INCLUDE 234 BEDS AT THE [facility] Medical History (Updated 02/04/24 @ 19:48 by Cassandra Disla MD) Trigger finger B12 deficiency Leukopenia Impaired glucose tolerance Meralgia paresthetica Hypovitaminosis D Surgical History H/O right knee surgery History of fusion of cervical spine Status post excision of lipoma History of tubal ligation Family History Father Bladder cancer Mother Diabetes Alzheimer's dementia Maternal Grandmother Hypertension Paternal Uncle Bone cancer Sister Stroke Diabetes Daughter Asthma Brother Diabetes Brother Diabetes Social History Household Members: Significant Other, Family and Children Housing: House Alcohol intake: never Patient Tobacco Use Status: Never used Tobacco e-Cigarette/Vaping Use: Never Used Second Hand Smoke Exposure: No service: No Current occupational status: employed Current occupation: rt hand / print shop Current occupational exposures/hazards: No Cognitive needs: No Hearing needs: No Vision needs: No Questionnaire PHQ-9 Over the last 2 weeks, how often have you been bothered by any of the following problems? 1. Little interest or pleasure in doing things: not at all 2. Feeling down, depressed, or hopeless: not at all 3. Trouble falling or staying asleep, or sleeping too much: not at all 4. Feeling tired or having little energy: not at all 5. Poor appetite or overeating: not at all 6. Feeling bad about yourself - or that you are a failure or have let yourself or your family down: not at all 7. Trouble concentrating on things, such as reading the newspaper or watching television: not at all 8. Moving or speaking so slowly that other people could have noticed. Or the opposite - being so fidgety or restless that you have been moving around a lot more than usual: not at all 9. Thoughts that you would be better off or of hurting yourself in some way: not at all Total score: 0 Depression Screening Interpretation: Negative Depression Screening Done: Yes 20971 - PHQ-9 Billing: Yes Source: Developed by Drs. Jadiel Green, Rosa Maria Gerard, Ronan Caballero and colleagues, with an educational christa from [employer]. Thrive Questionnaire Date Thrive assessed: 02/04/24 I am a: Patient What is your living situation today?: I have a steady place to live Within the past 12 months, did the food you bought not last and you didn't have the money to get more?: Never true Within the past 12 months, did you worry whether your food would run out before you got money to buy more?: Never true Do you have trouble paying for medicines?: No Do you have trouble getting transportation to medical appointments?: No Do you have trouble paying your heating and electricity bill?: No Do you have trouble taking care of your child, family member or friend?: No Do you have trouble with day-to-day activities such as bathing, preparing meals, shopping, managing finances, etc.?: No Are you currently unemployed and looking for a job?: No Are you interested in more education?: No Please select the resources that you would like help with: None Currently or been in a relationship where the following occur: No concerns reported THRIVE Score: 0 AUDIT C Alcohol Use Questionnaire (AUDIT-C) 1. How often do you have a drink containing alcohol?: Never Total Score: 0 MAYCOL-7 AMB Questionnaire MAYCOL-7 Date MAYCOL - 7 assessed: 02/04/24 Feeling nervous, anxious, or on edge: 0 = Not at all Not being able to stop or control worryin = Not at all Worrying too much about different things: 0 = Not at all Trouble relaxin = Not at all Being so restless that it is hard to sit still: 0 = Not at all Becoming easily annoyed or irritable: 0 = Not at all Feeling afraid as if something awful might happen: 0 = Not at all Total MAYCOL-7 score (0-4 normal; 5-9 mild; 10-14 moderate; 15-21 severe): 0 Source: Developed by Drs. Jadiel Green, Rosa Maria Gerard, Ronan Caballero and colleagues, with an educational christa from [employer]. MAYCOL-7 Assessment Billing MAYCOL-7 Assessment Tool: MAYCOL-7 Assessment 74591 Review of Systems Const All systems reviewed & are unremarkable except as noted in HPI and below Card Denies chest pain at rest, Denies chest pain with activity, Denies edema, Denies irregular heart rhythm, Denies claudication, Denies dyspnea, Denies dyspnea on exertion, Denies orthopnea, Denies paroxysmal nocturnal dyspnea and Denies slow heart rate Resp Denies cough, Denies dyspnea and Denies dyspnea on exertion GI Denies abdominal pain, Denies change in bowel habits, Denies excessive flatus, Denies nausea and Denies vomiting Denies urinary incontinence, Denies urinary hesitancy and Denies urinary urgency Musc Denies abnormal gait, Denies atrophy, Denies deformity and Denies limited range of motion Skin/Breast Denies bleeding lesions, Denies changing lesions and Denies rash Neuro Denies abnormal gait, Denies behavioral changes and Denies lack of coordination Psych Denies behavioral changes Physical exam (Primary Care) Vital Signs: Last Vital Signs BP 130/72 02/04/24 16:46 BMI result Body Mass Index 34.5 Tobacco/Smoking Status: Tobacco use Status Tobacco use date assessed 02/04/24 02/04/24 16:52 Patient Tobacco Use Status Never used Tobacco 02/04/24 16:52 e-Cigarette/Vaping Use Never Used 02/04/24 16:52 PHQ-9: PHQ-9 Score PHQ-9: Total score 0 02/04/24 17:11 Depression Screening Interpretation: Negative Thrive Assessment: Date of Thrive Assessment Date Thrive assessed 02/04/24 02/04/24 16:52 Currently or been in a relationship where the following occur: No concerns reported HENMT Head: Yes normal to inspection, Yes normocephalic and Yes atraumatic Ears: external ears normal Eyes General: appearance normal, both eyes and all related structures Eyelids: Yes eyelids normal Conjunctivae: conjunctivae normal Neck Neck: Yes normal visual inspection and Yes supple Resp Effort & Inspection: normal respiratory effort Auscultation: clear to auscultation bilaterally Cardio Jugular venous distension: no JVD Rate: regular rate Rhythm: regular rhythm Heart sounds: S1 normal heart sound present and S2 normal heart sound present GI Inspection: Yes normal to inspection Palpation (GI): Soft to palpation and nontender Auscultation: normal bowel sounds Skin General skin exam: no rashes or lesions noted Neuro General: no focal motor deficits Extrem General: Yes full ROM Psych Appearance: grossly normal Assessment and Plan Assessment & Plan (1) Encounter for physical examination: Code(s): Z00.00 - Encounter for general adult medical examination without abnormal findings Plan: Repeat in a year. (2) Left knee pain: Code(s): M25.562 - Pain in left knee Plan: X-ray ordered. Referred to Ortho. Orders: Orders Lipid Panel Today E78.5 - Hyperlipidemia, unspecified, Z00.00 - Encounter for general adult medical examination without abnormal findings Vitamin D 25-OH Total Today E55.9 - Vitamin D deficiency, unspecified Comprehensive [place]. Panel Fast Today Z00.00 - Encounter for general adult medical examination without abnormal findings XR knee LT 2V Today M25.562 - Pain in left knee Referrals Orthopedics Referral M25.562 - Pain in left knee EXPERIMENTAL WELDER Referral Z12.4 - Encounter for screening for malignant neoplasm of cervix Coding Level of Care Code Est Pt Level 3 (30843) Est Pt Prev Care 40-64y(23275) Diagnoses Encounter for physical examination Z00.00 Left knee pain M25.562 Additional Codes MAYCOL-7 Assessment Billing - MAYCOL-7 Assessment Tool: MAYCOL-7 Assessment 44188 ([id number]) Time Spent (min) 30
== END 2024-02-04 17:14 | disposition home or self-care (01) ==
PROVIDERS: PCP Internal Medicine; Visit Provider Internal Medicine
DX: Z00.00 Encounter for general adult medical examination without abnormal findings (principal); M25.562 Pain in left knee
CPT/HCPCS: 99213; 99396

== ENCOUNTER 2024-03-03 13:55 | Outpatient (REF) | payer OTHER, SELFPAY ==
--- NOTE | ~2024-03-03 | XR_ITS ---
EXAMINATION: XR KNEE, RIGHT CLINICAL INFORMATION: M25.561 - Pain in right knee COMPARISON: 02/01/2017. TECHNIQUE: AP view of the right knee. FINDINGS: Normal bone mineralization. No fracture, dislocation, or focal bone lesion. Mild to moderate medial and lateral compartment joint space narrowing right knee, with very subtle marginal osteophytes. Mild spurring of the tibial spines. Alignment is normal. Soft tissues appear normal. XR/XR knee RT 1V IMPRESSION: 1. No acute findings right knee. 2. Mild to moderate medial and lateral compartment osteoarthrosis. Electronically signed by: Raciel Berrios MD 05/11/2024 09:42 AM [facility] [place]
--- NOTE | ~2024-03-03 | XR_ITS ---
EXAMINATION: XR KNEE, LEFT CLINICAL INFORMATION: M25.562 - Pain in left knee COMPARISON: None available. TECHNIQUE: Four views of the left knee. FINDINGS: Normal bone mineralization. No fracture, dislocation, or focal bone lesion. Moderate medial and mild to moderate lateral compartment joint space narrowing right knee, with very subtle marginal osteophytes. Mild spurring of the tibial spines. Mild degenerative arthritis patellofemoral joint with small marginal osteophytes. Alignment is normal. No definite joint effusion seen. Soft tissues appear normal. XR/XR knee LT 3V IMPRESSION: 1. No acute findings right knee. 2. Moderate medial and mild lateral and patellofemoral compartment osteoarthrosis. Electronically signed by: Raciel Berrios MD 05/11/2024 09:53 AM [facility]
== END 2024-03-03 13:56 | disposition home or self-care (01) ==
LOC: HO.XRAY 13:55
PROVIDERS: PCP Internal Medicine; Visit Provider Physician Assistant
DX: M17.12 Unilateral primary osteoarthritis, left knee (principal); M25.561 Pain in right knee
CPT/HCPCS: 20610; 73560; 73562; J1010

== ENCOUNTER → 2024-03-03 13:59 | Outpatient (BNV) | payer OTHER, SELFPAY | PROVIDERS: PCP Internal Medicine; Visit Provider Radiology Diagnostic Radiology | DX: M25.562 Pain in left knee (principal); M25.561 Pain in right knee | CPT/HCPCS: 73560; 73562 ==

== ENCOUNTER 2024-03-03 15:24 | Outpatient (AMB) | payer OTHER, SELFPAY ==
--- NOTE | 2024-03-03 15:30 | MHC.OFFVIS ---
Intake Visit Reasons: New prob- Left knee pain Intake Note: Pt presents to the office today for left knee pain. Pt states the pain started 1 month ago with no known injury. Pt states she has some pain when she walks and feels clicking in her knee. Pt states she has difficulty walking up and down stairs. Pt denies any previous surgeries or injections in her left knee. 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 She denies any injury. She states she has pain in her knee that is aggravated with ambulation and stair use. She also reports clicking in her knee. He has not had any treatment in the past. She does not have a history of diabetes. [facility] Medical History Trigger finger B12 deficiency Leukopenia Impaired glucose tolerance Meralgia paresthetica Hypovitaminosis D Surgical History H/O right knee surgery History of fusion of cervical spine Status post excision of lipoma History of tubal ligation Family History Father Bladder cancer Mother Diabetes Alzheimer's dementia Maternal Grandmother Hypertension Paternal Uncle Bone cancer Sister Stroke Diabetes Daughter Asthma Brother Diabetes Brother Diabetes Social History Household Members: Significant Other, Family and Children Housing: House Alcohol intake: never Patient Tobacco Use Status: Never used Tobacco e-Cigarette/Vaping Use: Never Used Second Hand Smoke Exposure: No service: No Current occupational status: employed Current occupation: rt hand / print shop Current occupational exposures/hazards: No Cognitive needs: No Hearing needs: No Vision needs: No Review of Systems Const All systems reviewed & are unremarkable except as noted in HPI and below Physical Exam Extrem Other: Left knee: Skin intact, no erythema or joint effusion. Tenderness along the medial and lateral joint line. Full ROM with crepitus. Negative Bar?s. No ligamentous laxity. NVI. ? Office Procedures Joint Injection/Aspiration Joint Injection/Aspiration Primary Site: left knee Prep: site was prepped using aseptic technique, ethochloride spray was applied and injection warnings given Injected: 80 mg of, DepoMedrol, with 8 mL of, 1% plain lidocaine and in the joint Approach Used: anterolateral Procedure: The patient tolerated the procedure well and there was some relief with the local anesthesia Coding 37947 - Glenohumeral/Tronchanteric Bursa/Intraarticular Procedure code (CPT) selection complete Quality Reporting (2019) Adult ([facility] 138/07/31/68) Smoking risk assessment performed?: Yes Patient Tobacco Use Status: Never used Tobacco Results Reviewed Results Reviewed: xrays of the left knee show mild medial and pf compartment oa Assessment & Plan Assessment & Plan (1) Osteoarthritis of left knee: Code(s): M17.12 - Unilateral primary osteoarthritis, left knee Category: Medical Plan We discussed options today, which include steroid injection. The patient did consent to move forward with the left knee injection, which was tolerated well. I recommended rest, ice, and elevation and OTC anti-inflammatories as needed for discomfort. She was also given a course of physical therapy in the office today. If symptoms persist or worsen over the next 6-8 weeks, patient will contact the office, otherwise follow-up as needed. ? Orders: Orders XR knee RT 1V Today M25.561 - Pain in right knee XR knee LT 3V Today M25.562 - Pain in left knee PT Evaluation and Treatment Today M17.12 - Unilateral primary osteoarthritis, left knee Patient Instructions: Scribed for Vincent Canas PA-C, by Finesse Marin diagnostic medical sonographer, on 03/03/2024 at 3:30 PM EST.? I, Vincent Canas PA-C, have personally reviewed and agree with the information entered by the scribe. Coding Level of Care Code New Pt Level 3 (17850) Complex EM visit Add On G2211 Diagnoses Osteoarthritis of left knee M17.12 CPT Codes Coding - Joint 7: 85776 - Glenohumeral/Tronchanteric Bursa/Intraarticular ([id number])
== END 2024-03-03 15:55 | disposition home or self-care (01) ==
PROVIDERS: PCP Internal Medicine; Visit Provider Physician Assistant
DX: M17.12 Unilateral primary osteoarthritis, left knee (principal)
CPT/HCPCS: 20610; 99203

== ENCOUNTER 2024-03-20 08:52 | Outpatient (REF) | payer OTHER, SELFPAY ==
--- NOTE | ~2024-03-20 | MM_ITS ---
EXAMINATION: MM SCREENING DIGITAL BREAST TOMOSYNTHESIS, BILATERAL CLINICAL INFORMATION: Screening. Asymptomatic. COMPARISON: Mammography: Comparison is made with available priors TECHNIQUE: Digital breast mammography with tomosynthesis is performed in both the craniocaudal and mediolateral oblique views along with computer-aided detection (CAD). FINDINGS: There are scattered areas of fibroglandular density (ACR BI-RADS breast composition Category b). There are no significant masses, abnormal calcifications, or other abnormalities. MM/MM tomosynthesis screening BI IMPRESSION: No mammographic evidence of malignancy. ASSESSMENT: BI-RADS BI-RADS 1 - Negative RECOMMENDATION: Routine annual mammography screening. 1 year F/U This examination should not preclude the clinical evaluation of a suspicious palpable abnormality. This patient's information was entered into a reminder system with a target due date for their next mammogram. Electronically signed by: Johana Mancera DO 04/02/2024 09:04 AM EDDavid
== END 2024-03-20 08:53 | disposition home or self-care (01) ==
LOC: HO.MAMMO 08:52
PROVIDERS: PCP Internal Medicine; Visit Provider Internal Medicine
DX: Z12.31 Encounter for screening mammogram for malignant neoplasm of breast (principal)
CPT/HCPCS: 77063; 77067

== ENCOUNTER → 2024-03-20 09:00 | Outpatient (BNV) | payer OTHER, SELFPAY | PROVIDERS: PCP Internal Medicine; Visit Provider Internal Medicine | DX: Z12.31 Encounter for screening mammogram for malignant neoplasm of breast (principal) | CPT/HCPCS: 77063; 77067 ==

== ENCOUNTER 2024-05-29 07:43 | Outpatient (REF) | payer OTHER, SELFPAY ==
[2024-05-29 10:20] LABS: Alanine Aminotransferase 30 U/L (0-31); Albumin Level 4.1 g/dL (3.5-5.0); Alkaline Phosphatase 63 U/L (39-117); Anion Gap 12 (12-20); Aspartate Amino Transferase 27 U/L (5-31); Bilirubin Total 0.5 mg/dL (0.0-1.0); Blood Urea Nitrogen 13 mg/dL (9-16); Calcium 8.7 mg/dL (8.4-10.2); Carbon Dioxide 26 mmol/L (22-29); Chloride 107 mmol/L (96-108); Cholesterol 194 mg/dL (<200); Estimated Glomerular Filt Rate > 60; Glucose Fasting 124 mg/dL (60-99); HDL Cholesterol 51 mg/dL (>40); LDL Cholesterol Calculated 129 mg/dL (<100); Sodium 141 mmol/L (135-145); Total Protein 7.3 g/dL (6.5-8.0); Triglycerides 74 mg/dL (<150)
[2024-05-29 10:37] LABS: Vitamin D 25-OH Total 32.8 ng/mL (>30)
[2024-05-29 10:48] LABS: Folate 14.2 ng/mL (> or = 4.0); Vitamin B12 324 pg/mL (200-900)
== END 2024-05-29 07:44 | disposition home or self-care (01) ==
LOC: HO.LAB 07:43
PROVIDERS: PCP Internal Medicine; Visit Provider Internal Medicine
DX: Z00.00 Encounter for general adult medical examination without abnormal findings (principal); E53.8 Deficiency of other specified B group vitamins; E78.5 Hyperlipidemia, unspecified; E55.9 Vitamin D deficiency, unspecified
CPT/HCPCS: 36415; 80053; 80061; 82306; 82607; 82746

== ENCOUNTER 2024-08-05 16:32 | Outpatient (AMB) | payer OTHER, SELFPAY ==
[2024-08-05 16:39] VITALS: BP 122/76; PULSE 66; O2SAT 99; BMI 34.6
--- NOTE | 2024-08-05 16:39 | MHC.PC.OV ---
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 Accompanied by: Self / Same As Patient Allergies No Known Allergies Allergy (Verified 08/05/24 16:59) Medication List - Last Reconciled 08/05/24 by Cassandra Disla MD calcium carbonate 600 mg PO BID 90 days cholecalciferol (vitamin D3) 25 mcg PO DAILY 90 days lisinopril 40 mg PO DAILY 90 days Tobacco use date assessed: 08/05/24 Dental Screening Dental Screen Date: 08/05/24 Did you have a dental visit in the last 12 months?: Yes Did you have a dental problem in the last 6 months where you did not have access to dental care?: No Was dental information given to patient?: Patient has dentist HPI HPI Comments History of Present Illness Details The patient is a 64-year-old female presenting with chronic pain predominantly affecting her left hip and lower back, associated with sitting and standing. This has persisted for about a month, with ongoing issues possibly linked to known arthritis in her knees and potential sciatica as indicated by left leg numbness. Additionally, the patient experiences recurrent skin abscesses that begin as small spots and become painful, pus-filled lesions, with no known triggers or changes in her hygiene routine. The patient?s hypertension is well-managed with Lisinopril 40 mg, but she has exhausted her supply of calcium and vitamin A supplements. She has osteopenia with last DEXA scan done 2022 and needs to be repeated this year. Taking calcium with vitamin-D for this matter. Also has impaired glucose tolerance and blood glucose will be repeated. Complains of skin lesions and will be referred to Dermatology. COUNTS INCLUDE 234 BEDS AT THE [facility] Medical History (Updated 08/05/24 @ 17:19 by Cassandra Disla MD) Trigger finger B12 deficiency Leukopenia Impaired glucose tolerance Meralgia paresthetica Hypovitaminosis D Surgical History H/O right knee surgery History of fusion of cervical spine Status post excision of lipoma History of tubal ligation Family History Father Bladder cancer Mother Diabetes Alzheimer's dementia Maternal Grandmother Hypertension Paternal Uncle Bone cancer Sister Stroke Diabetes Daughter Asthma Brother Diabetes Brother Diabetes Social History Household Members: Significant Other, Family and Children Housing: House Alcohol intake: never Patient Tobacco Use Status: Never used Tobacco e-Cigarette/Vaping Use: Never Used Second Hand Smoke Exposure: No service: No Current occupational status: employed Current occupation: [employer] Current occupational exposures/hazards: No Cognitive needs: No Hearing needs: No Vision needs: No Questionnaire PHQ-9 Over the last 2 weeks, how often have you been bothered by any of the following problems? 1. Little interest or pleasure in doing things: not at all 2. Feeling down, depressed, or hopeless: not at all 3. Trouble falling or staying asleep, or sleeping too much: not at all 4. Feeling tired or having little energy: not at all 5. Poor appetite or overeating: not at all 6. Feeling bad about yourself - or that you are a failure or have let yourself or your family down: not at all 7. Trouble concentrating on things, such as reading the newspaper or watching television: not at all 8. Moving or speaking so slowly that other people could have noticed. Or the opposite - being so fidgety or restless that you have been moving around a lot more than usual: not at all 9. Thoughts that you would be better off or of hurting yourself in some way: not at all Total score: 0 Depression Screening Interpretation: Negative Depression Screening Done: Yes 49141 - PHQ-9 Billing: Yes Source: Developed by Drs. Jadiel Green, Rosa Maria Gerard, Ronan Caballero and colleagues, with an educational christa from [employer]. Thrive Questionnaire Date Thrive assessed: 08/05/24 I am a: Patient What is your living situation today?: I have a steady place to live Within the past 12 months, did the food you bought not last and you didn't have the money to get more?: Never true Within the past 12 months, did you worry whether your food would run out before you got money to buy more?: Never true Do you have trouble paying for medicines?: No Do you have trouble getting transportation to medical appointments?: No Do you have trouble paying your heating and electricity bill?: No Do you have trouble taking care of your child, family member or friend?: No Do you have trouble with day-to-day activities such as bathing, preparing meals, shopping, managing finances, etc.?: No Are you currently unemployed and looking for a job?: No Are you interested in more education?: No Please select the resources that you would like help with: None Currently or been in a relationship where the following occur: No concerns reported THRIVE Score: 0 AUDIT C Alcohol Use Questionnaire (AUDIT-C) 1. How often do you have a drink containing alcohol?: Never 3. How often do you have six or more drinks on one occasion?: Never Total Score: 0 MAYCOL-7 AMB Questionnaire MAYCOL-7 Date MAYCOL - 7 assessed: 08/05/24 Feeling nervous, anxious, or on edge: 0 = Not at all Not being able to stop or control worryin = Not at all Worrying too much about different things: 0 = Not at all Trouble relaxin = Not at all Being so restless that it is hard to sit still: 0 = Not at all Becoming easily annoyed or irritable: 0 = Not at all Feeling afraid as if something awful might happen: 0 = Not at all Total MAYCOL-7 score (0-4 normal; 5-9 mild; 10-14 moderate; 15-21 severe): 0 Source: Developed by Drs. Jadiel Green, Rosa Maria Gerard, Ronan Caballero and colleagues, with an educational christa from [employer]. MAYCOL-7 Assessment Billing MAYCOL-7 Assessment Tool: MAYCOL-7 Assessment 34223 Review of Systems Const All systems reviewed & are unremarkable except as noted in HPI and below Card Denies chest pain at rest, Denies chest pain with activity, Denies edema, Denies irregular heart rhythm, Denies claudication, Denies dyspnea, Denies dyspnea on exertion, Denies orthopnea, Denies paroxysmal nocturnal dyspnea and Denies slow heart rate Resp Denies cough, Denies dyspnea and Denies dyspnea on exertion GI Denies abdominal pain, Denies change in bowel habits, Denies excessive flatus, Denies nausea and Denies vomiting Denies urinary incontinence, Denies urinary hesitancy and Denies urinary urgency Musc Denies abnormal gait, Reports back pain, Denies atrophy, Denies deformity, Reports arthralgias and Denies limited range of motion Skin/Breast Denies bleeding lesions, Denies changing lesions and Denies rash Neuro Denies abnormal gait and Denies lack of coordination Physical exam (Primary Care) Vital Signs: Last Vital Signs Pulse 66 08/05/24 16:39 BP 122/76 08/05/24 16:39 Pulse Ox 99 08/05/24 16:39 Oxygen Delivery Method Room Air 08/05/24 16:39 BMI result Body Mass Index 34.6 BMI Assessment/Plan discussion: High BMI High, discussed plan: lifestyle, weight reduction, dietary and physical activity Tobacco/Smoking Status: Tobacco use Status Tobacco use date assessed 08/05/24 08/05/24 16:47 Patient Tobacco Use Status Never used Tobacco 08/05/24 16:47 e-Cigarette/Vaping Use Never Used 08/05/24 16:47 PHQ-9: PHQ-9 Score PHQ-9: Total score 0 08/05/24 17:03 Depression Screening Interpretation: Negative Thrive Assessment: Date of Thrive Assessment Date Thrive assessed 08/05/24 08/05/24 16:47 Currently or been in a relationship where the following occur: No concerns reported Resp Effort & Inspection: normal respiratory effort Auscultation: clear to auscultation bilaterally Cardio Jugular venous distension: no JVD Rate: regular rate Rhythm: regular rhythm Heart sounds: S1 normal heart sound present and S2 normal heart sound present Neuro General: no focal motor deficits Coding Level of Care Code Est Pt Level 4 (39702) Complex EM visit Add On G2211 Diagnoses Left hip pain M25.552 Skin lesions L98.9 Left knee pain M25.562 Lumbar pain M54.50 Osteopenia, unspecified location M85.80 Osteopenia location: unspecified Essential hypertension I10 Impaired glucose tolerance R73.02 Hypovitaminosis D E55.9 Additional Codes MAYOCL-7 Assessment Billing - MAYCOL-7 Assessment Tool: MAYCOL-7 Assessment 17554 ([id number]) PHQ-9 - 95082 - PHQ-9 Billing: Yes ([id number]) Time Spent (min) 22 Assessment & Plan Assessment & Plan (1) Left hip pain: Code(s): M25.552 - Pain in left hip Category: Medical (2) Skin lesions: Code(s): L98.9 - Disorder of the skin and subcutaneous tissue, unspecified Category: Medical (3) Left knee pain: Code(s): M25.562 - Pain in left knee Category: Medical (4) Lumbar pain: Code(s): M54.50 - Low back pain, unspecified Category: Medical (5) Osteopenia: Code(s): M85.80 - Other specified disorders of bone density and structure, unspecified site Category: Medical Qualifiers: Osteopenia location: unspecified Qualified Code(s): M85.80 - Other specified disorders of bone density and structure, unspecified site (6) Essential hypertension: Code(s): I10 - Essential (primary) hypertension Category: Medical (7) Impaired glucose tolerance: Code(s): R73.02 - Impaired glucose tolerance (oral) Category: Medical (8) Hypovitaminosis D: Code(s): E55.9 - Vitamin D deficiency, unspecified Category: Medical Plan To address the patient's chronic pain, radiographic imaging of the left hip and lower back will be obtained to explore arthritis and sciatica. Celebrex will be prescribed to manage pain and inflammation, with potential physical therapy depending on further assessment. For recurrent skin abscesses, dermatology referral may be considered, and improvement will be monitored. Hypertension management with current medication continues effectively. A prescription for calcium supplement with vitamin A will be processed. Follow-up for blood sugar control is scheduled within four months. Patient was informed and verbally consented to the use of an ambient scribe for clinic note documentation during this visit. I discussed with the patient the likely arthritic changes contributing to her chronic pain and the possibility of sciatica. Imaging was agreed upon to clarify the diagnosis. The patient expressed understanding of the treatment plan involving Celebrex for pain control and the rationale for imaging. We also discussed addressing the recurrent skin lesions with a potential dermatology consultation if no improvement occurs. The management plan for hypertension remains unchanged as it is effective, and the importance of maintaining calcium supplementation was articulated. We agreed on a follow-up in four months to evaluate blood sugar levels and overall management progress. Orders: Orders XR lumbar spine 2-3V Today M54.50 - Low back pain, unspecified XR DEXA axial skeleton 7 Months Z78.0 - Asymptomatic menopausal state Lipid Panel 4 Months E78.5 - Hyperlipidemia, unspecified XR hip LT min 2V Today M25.552 - Pain in left hip Vitamin D 25-OH Total 4 Months E55.9 - Vitamin D deficiency, unspecified Comprehensive [place]. Panel Fast 4 Months M85.80 - Other specified disorders of bone density and structure, unspecified site Referrals Dermatology Referral L98.9 - Disorder of the skin and subcutaneous tissue, unspecified Medications: New celecoxib (Celebrex) 200 mg PO DAILY 30 days PRN 30 caps 1RF pain Refilled calcium carbonate 600 mg PO BID 90 days 180 tabs 3RF M85.80 - Other specified disorders of bone density and structure, unspecified site Patient Instructions: - Take Celebrex as prescribed for pain management. - Complete radiographic imaging for hip and lower back. - Follow up with the physician in four months for blood sugar level re-evaluation. - Monitor and report changes or worsened symptoms of the skin lesions. - Ensure continuation of Lisinopril for blood pressure. - Obtain and take calcium with vitamin A supplements as previously prescribed. - Consider physical therapy if pain persists or worsens after initial interventions.
== END 2024-08-05 17:11 | disposition home or self-care (01) ==
PROVIDERS: PCP Internal Medicine; Visit Provider Internal Medicine
DX: M25.552 Pain in left hip (principal); L98.9 Disorder of the skin and subcutaneous tissue, unspecified; M25.562 Pain in left knee; M54.50 Low back pain, unspecified; M85.80 Other specified disorders of bone density and structure, unspecified site; I10 Essential (primary) hypertension; R73.02 Impaired glucose tolerance (oral); E55.9 Vitamin D deficiency, unspecified

== ENCOUNTER → 2024-08-05 16:32 | Outpatient (BNVA) | payer OTHER, SELFPAY | PROVIDERS: PCP Internal Medicine; Visit Provider Internal Medicine | DX: M25.552 Pain in left hip (principal); L98.9 Disorder of the skin and subcutaneous tissue, unspecified; M25.562 Pain in left knee; M54.50 Low back pain, unspecified; M85.80 Other specified disorders of bone density and structure, unspecified site; I10 Essential (primary) hypertension; R73.02 Impaired glucose tolerance (oral); E55.9 Vitamin D deficiency, unspecified | CPT/HCPCS: 96127 ==

== ENCOUNTER 2024-12-16 16:18 | Outpatient (AMB) | payer OTHER, SELFPAY ==
[2024-12-16 16:21] VITALS: BP 136/70; BMI 35.4
--- NOTE | 2024-12-16 16:21 | MHC.PC.OV ---
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 Accompanied by: Self / Same As Patient Allergies No Known Allergies Allergy (Verified 12/16/24 16:27) Medication List - Last Reconciled 12/16/24 by Cassandra Disla MD calcium carbonate 600 mg PO BID 90 days celecoxib (Celebrex) 200 mg PO DAILY PRN 30 days cholecalciferol (vitamin D3) 25 mcg PO DAILY 90 days cyclobenzaprine 5 mg PO BEDTIME PRN 10 days lisinopril 40 mg PO DAILY 90 days Tobacco use date assessed: 08/05/24 Dental Screening Dental Screen Date: 08/05/24 HPI HPI Comments History of Present Illness Details The patient is a 64-year-old female presenting for follow-up of her chronic conditions, including hypertension and elevated blood glucose. Her blood pressure is well-controlled with current medication, including lisinopril 40 mg daily. Previously, her blood glucose levels were slightly elevated, and a repeat test is planned for February during her next physical examination. The patient reports experiencing vertigo, which began approximately one week ago. She describes the sensation of the room spinning when lying down, which has improved since the initial onset. She recalls a similar episode a few years ago, which resolved quickly with medication prescribed at that time. The patient has a history of arthritis, particularly affecting her knees, which causes difficulty when ascending or descending stairs. She manages her symptoms with Celebrex as needed and uses a shopping cart for support during shopping trips. The patient also experiences anxiety, particularly related to travel, for which she has been prescribed medication to use as needed. [facility] Medical History (Updated 12/16/24 @ 16:42 by Cassandra Disla MD) Trigger finger B12 deficiency Leukopenia Impaired glucose tolerance Meralgia paresthetica Hypovitaminosis D Surgical History H/O right knee surgery History of fusion of cervical spine Status post excision of lipoma History of tubal ligation Family History Father Bladder cancer Mother Diabetes Alzheimer's dementia Maternal Grandmother Hypertension Paternal Uncle Bone cancer Sister Stroke Diabetes Daughter Asthma Brother Diabetes Brother Diabetes Social History Household Members: Significant Other, Family and Children Housing: House Alcohol intake: never Patient Tobacco Use Status: Never used Tobacco e-Cigarette/Vaping Use: Never Used Second Hand Smoke Exposure: No service: No Current occupational status: employed Current occupation: [employer] / [employer] Current occupational exposures/hazards: No Cognitive needs: No Hearing needs: No Vision needs: No Questionnaire PHQ-9 Over the last 2 weeks, how often have you been bothered by any of the following problems? 1. Little interest or pleasure in doing things: not at all 2. Feeling down, depressed, or hopeless: not at all 3. Trouble falling or staying asleep, or sleeping too much: not at all 4. Feeling tired or having little energy: not at all 5. Poor appetite or overeating: not at all 6. Feeling bad about yourself - or that you are a failure or have let yourself or your family down: not at all 7. Trouble concentrating on things, such as reading the newspaper or watching television: not at all 8. Moving or speaking so slowly that other people could have noticed. Or the opposite - being so fidgety or restless that you have been moving around a lot more than usual: not at all 9. Thoughts that you would be better off or of hurting yourself in some way: not at all Total score: 0 Depression Screening Interpretation: Negative Depression Screening Done: Yes 23891 - PHQ-9 Billing: Yes Source: Developed by Drs. Jadiel Green, Rosa Maria Gerard, Ronan Caballero and colleagues, with an educational christa from [employer]. Thrive Questionnaire Date Thrive assessed: 12/16/24 I am a: Patient What is your living situation today?: I have a steady place to live Within the past 12 months, did the food you bought not last and you didn't have the money to get more?: I choose not to answer this question Within the past 12 months, did you worry whether your food would run out before you got money to buy more?: I choose not to answer this question Do you have trouble paying for medicines?: No Do you have trouble getting transportation to medical appointments?: No Do you have trouble paying your heating and electricity bill?: I choose not to answer this question Do you have trouble taking care of your child, family member or friend?: No Do you have trouble with day-to-day activities such as bathing, preparing meals, shopping, managing finances, etc.?: No Are you currently unemployed and looking for a job?: No Are you interested in more education?: No Please select the resources that you would like help with: None Currently or been in a relationship where the following occur: No concerns reported THRIVE Score: 0 AUDIT C Alcohol Use Questionnaire (AUDIT-C) 1. How often do you have a drink containing alcohol?: Never Total Score: 0 Score Reviewed/Action Taken: No MAYCOL-7 AMB Questionnaire MAYCOL-7 Date MAYCOL - 7 assessed: 12/16/24 Feeling nervous, anxious, or on edge: 0 = Not at all Not being able to stop or control worryin = Not at all Worrying too much about different things: 0 = Not at all Trouble relaxin = Not at all Being so restless that it is hard to sit still: 0 = Not at all Becoming easily annoyed or irritable: 0 = Not at all Feeling afraid as if something awful might happen: 0 = Not at all Total MAYCOL-7 score (0-4 normal; 5-9 mild; 10-14 moderate; 15-21 severe): 0 Source: Developed by Drs. Jadiel Green, Rosa Maria Gerard, Ronan Caballero and colleagues, with an educational christa from [employer]. MAYCOL-7 Assessment Billing MAYCOL-7 Assessment Tool: MAYCOL-7 Assessment 16750 Review of Systems Const All systems reviewed & are unremarkable except as noted in HPI and below Card Denies chest pain at rest, Denies chest pain with activity, Denies edema, Denies irregular heart rhythm, Denies claudication, Denies dyspnea, Denies dyspnea on exertion, Denies orthopnea, Denies paroxysmal nocturnal dyspnea and Denies slow heart rate Resp Denies cough, Denies dyspnea and Denies dyspnea on exertion GI Denies abdominal pain, Denies change in bowel habits, Denies excessive flatus, Denies nausea and Denies vomiting Denies urinary incontinence, Denies urinary hesitancy and Denies urinary urgency Musc Denies abnormal gait, Denies atrophy, Denies deformity and Denies limited range of motion Skin/Breast Denies bleeding lesions, Denies changing lesions and Denies rash Neuro Denies abnormal gait, Denies behavioral changes and Denies lack of coordination Psych Denies behavioral changes Physical exam (Primary Care) Vital Signs: Last Vital Signs BP 136/70 12/16/24 16:21 BMI result Body Mass Index 35.4 BMI Assessment/Plan discussion: High BMI High, discussed plan: lifestyle, weight reduction, dietary and physical activity Tobacco/Smoking Status: Tobacco use Status Tobacco use date assessed 08/05/24 08/05/24 16:47 Patient Tobacco Use Status Never used Tobacco 08/05/24 16:47 e-Cigarette/Vaping Use Never Used 08/05/24 16:47 Depression Screening Interpretation: Negative Thrive Assessment: Date of Thrive Assessment Date Thrive assessed 12/09/24 12/09/24 12:28 Currently or been in a relationship where the following occur: No concerns reported Resp Effort & Inspection: normal respiratory effort Auscultation: clear to auscultation bilaterally Cardio Jugular venous distension: no JVD Rate: regular rate Rhythm: regular rhythm Heart sounds: S1 normal heart sound present and S2 normal heart sound present Extrem General: Yes full ROM Coding Level of Care Code Est Pt Level 4 (52630) Complex EM visit Add On G2211 Diagnoses Dizziness R42 Fear of flying F40.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 Impaired glucose tolerance R73.02 Essential hypertension I10 Additional Codes PHQ-9 - 51514 - PHQ-9 Billing: Yes ([id number]) MAYCOL-7 Assessment Billing - MAYCOL-7 Assessment Tool: MAYCOL-7 Assessment 71763 ([id number]) Time Spent (min) 22 Assessment & Plan Assessment & Plan (1) Dizziness: Code(s): R42 - Dizziness and giddiness Category: Medical (2) Fear of flying: Code(s): F40.243 - Fear of flying Category: Medical (3) Impaired glucose tolerance: Code(s): R73.02 - Impaired glucose tolerance (oral) Category: Medical (4) Essential hypertension: Code(s): I10 - Essential (primary) hypertension Category: Medical Plan The patient's hypertension is well-managed with lisinopril, and no changes to her medication regimen are necessary at this time. A follow-up blood glucose test is scheduled for February to monitor her previously elevated levels. For her vertigo, an otoscopic examination is planned to assess any potential ear-related causes, given her history of similar episodes. The patient is advised to continue using Celebrex for arthritis pain management and to use supportive measures such as a shopping cart during activities that exacerbate her symptoms. For her anxiety, particularly related to travel, she is to continue with her current medication regimen as needed. Patient was informed and verbally consented to the use of an ambient scribe for clinic note documentation during this visit. Orders: Orders Vitamin D 25-OH Total Today E55.9 - Vitamin D deficiency, unspecified Comprehensive [place]. Panel Fast Today R73.02 - Impaired glucose tolerance (oral) Lipid Panel Today E78.5 - Hyperlipidemia, unspecified Medications: New meclizine 25 mg PO BID PRN 60 tabs 0RF dizziness 30 days R42 - Dizziness and giddiness alprazolam 0.25 mg PO DAILY PRN 8 tabs 0RF anxiety 8 days F40.243 - Fear of flying
== END 2024-12-16 16:41 | disposition home or self-care (01) ==
LOC: HO.HMCH 16:19
PROVIDERS: PCP Internal Medicine; Visit Provider Internal Medicine
DX: R42 Dizziness and giddiness (principal); F40.243 Fear of flying; R73.02 Impaired glucose tolerance (oral); I10 Essential (primary) hypertension

== ENCOUNTER → 2024-12-16 16:18 | Outpatient (BNVA) | payer OTHER, SELFPAY | PROVIDERS: PCP Internal Medicine; Visit Provider Internal Medicine | DX: I10 Essential (primary) hypertension (principal); R42 Dizziness and giddiness; F40.243 Fear of flying; R73.02 Impaired glucose tolerance (oral); E55.9 Vitamin D deficiency, unspecified; E78.5 Hyperlipidemia, unspecified | CPT/HCPCS: 96127 ==

== ENCOUNTER 2025-02-05 07:01 | Outpatient (REF) | payer OTHER, SELFPAY ==
[2025-02-05 09:00] LABS: Alanine Aminotransferase 36 U/L (0-31); Albumin Level 4.1 g/dL (3.5-5.0); Alkaline Phosphatase 61 U/L (39-117); Anion Gap 13 (12-20); Aspartate Amino Transferase 30 U/L (5-31); Blood Urea Nitrogen 17 mg/dL (9-16); Calcium 8.7 mg/dL (8.4-10.2); Carbon Dioxide 26 mmol/L (22-29); Chloride 106 mmol/L (96-108); Cholesterol 186 mg/dL (<200); Estimated Glomerular Filt Rate > 60; HDL Cholesterol 42 mg/dL (>40); Potassium 4.1 mmol/L (3.3-5.1); Sodium 141 mmol/L (135-145); Total Protein 7.0 g/dL (6.5-8.0); Triglycerides 90 mg/dL (<150)
== END 2025-02-05 07:02 | disposition home or self-care (01) ==
LOC: HO.LAB 07:01
PROVIDERS: PCP Internal Medicine; Visit Provider Internal Medicine
DX: E55.9 Vitamin D deficiency, unspecified (principal); E78.5 Hyperlipidemia, unspecified; R73.02 Impaired glucose tolerance (oral)
CPT/HCPCS: 36415; 80053; 80061; 82306

== ENCOUNTER 2025-02-28 15:44 | Outpatient (AMB) | payer OTHER, SELFPAY ==
[2025-02-28 16:02] VITALS: BP 140/68; PULSE 62; RESP 18; TEMP 36.4; O2SAT 96; BMI 35.6
--- NOTE | 2025-02-28 16:02 | A.OFFPC_ITS ---
Vital Signs 02/28/25 16:02 Height 5 ft 4 in Weight 207 lb 6 oz BMI 35.6 BP 140/68 H Blood Pressure Location Lt brachial Position Sitting Respiration 18 Pulse 62 Pulse Source Pulse Oximeter Temp 97.5 F Temp Source Temporal Artery Scan Pulse Oximetry (%) 96 Oxygen Delivery Method Room Air Intake Visit Reasons: physical Hide Puller Required: No Accompanied by: Self / Same As Patient Allergies No Known Allergies Allergy (Verified 02/28/25 16:48) Medication List - Last Reconciled 02/28/25 by Cassandra Disla MD alprazolam 0.25 mg PO DAILY PRN 8 days calcium carbonate 600 mg PO BID 90 days cholecalciferol (vitamin D3) 25 mcg PO DAILY 90 days lisinopril 40 mg PO DAILY 90 days meclizine 25 mg PO BID PRN 30 days Tobacco use date assessed: 02/28/25 Fall risk assessment: No Falls in past year Last assessed Fall Risk: 02/28/25 Dental Screening Dental Screen Date: 02/28/25 Did you have a dental visit in the last 12 months?: Yes Did you have a dental problem in the last 6 months where you did not have access to dental care?: No Was dental information given to patient?: Patient has dentist HPI HPI Comments History of Present Illness Details The patient is a 65-year-old female presenting for a physical exam. She has a history of hypertension, currently managed with lisinopril 40 mg. Her blood pressure was noted to be elevated during the visit. The patient also has elevated blood glucose levels, with a previous reading of 124 mg/dL and a recent reading of 135 mg/dL. There is a plan to check her hemoglobin A1c to assess for diabetes. Preventative care measures include a mammogram conducted in March and a Cologuard test completed in 2022. The next Cologuard test is scheduled for 2025. [facility] Medical History Trigger finger B12 deficiency Leukopenia Impaired glucose tolerance Meralgia paresthetica Hypovitaminosis D Surgical History H/O right knee surgery History of fusion of cervical spine Status post excision of lipoma History of tubal ligation Family History (Updated 02/28/25 @ 16:53 by Cassandra Disla MD) Father Bladder cancer Mother Diabetes Alzheimer's dementia Maternal Grandmother Hypertension Paternal Uncle Bone cancer Sister Stroke Diabetes Daughter Asthma Brother Diabetes Brother Diabetes Social History Household Members: Significant Other, Family and Children Housing: House Alcohol intake: never Patient Tobacco Use Status: Never used Tobacco e-Cigarette/Vaping Use: Never Used Second Hand Smoke Exposure: No service: No Current occupational status: employed Current occupation: rt hand / [employer] Current occupational exposures/hazards: No Cognitive needs: No Hearing needs: No Vision needs: No Questionnaire Thrive Questionnaire Date Thrive assessed: 12/09/24 I am a: Patient What is your living situation today?: I have a steady place to live Within the past 12 months, did the food you bought not last and you didn't have the money to get more?: I choose not to answer this question Within the past 12 months, did you worry whether your food would run out before you got money to buy more?: I choose not to answer this question Do you have trouble paying for medicines?: No Do you have trouble getting transportation to medical appointments?: No Do you have trouble paying your heating and electricity bill?: I choose not to answer this question Do you have trouble taking care of your child, family member or friend?: No Do you have trouble with day-to-day activities such as bathing, preparing meals, shopping, managing finances, etc.?: No Are you currently unemployed and looking for a job?: No Are you interested in more education?: No Please select the resources that you would like help with: None Currently or been in a relationship where the following occur: No concerns reported THRIVE Score: 0 MAYCOL-7 AMB Questionnaire MAYCOL-7 Date MAYCOL - 7 assessed: 12/16/24 Source: Developed by Drs. Jadiel Green, Rosa Maria Gerard, Ronan Caballero and colleagues, with an educational christa from [employer]. Review of Systems Const All systems reviewed & are unremarkable except as noted in HPI and below Card Denies chest pain at rest, Denies chest pain with activity, Denies edema, Denies irregular heart rhythm, Denies claudication, Denies dyspnea, Denies dyspnea on exertion, Denies orthopnea, Denies paroxysmal nocturnal dyspnea and Denies slow heart rate Resp Denies cough, Denies dyspnea and Denies dyspnea on exertion GI Denies abdominal pain, Denies change in bowel habits, Denies excessive flatus, Denies nausea and Denies vomiting Denies urinary incontinence, Denies urinary hesitancy and Denies urinary urgency Musc Denies atrophy, Denies deformity and Denies limited range of motion Physical exam (Primary Care) Vital Signs: Last Vital Signs Temp 97.5 F 02/28/25 16:02 Pulse 62 02/28/25 16:02 Resp 18 02/28/25 16:02 BP 140/68 H 02/28/25 16:02 Pulse Ox 96 02/28/25 16:02 Oxygen Delivery Method Room Air 02/28/25 16:02 BMI result Body Mass Index 35.6 BMI Assessment/Plan discussion: High BMI High, discussed plan: lifestyle, weight reduction, dietary and physical activity Tobacco/Smoking Status: Tobacco use Status Tobacco use date assessed 02/28/25 02/28/25 16:10 Patient Tobacco Use Status Never used Tobacco 02/28/25 16:02 e-Cigarette/Vaping Use Never Used 02/28/25 16:02 Thrive Assessment: Date of Thrive Assessment Date Thrive assessed 12/09/24 02/28/25 16:02 Currently or been in a relationship where the following occur: No concerns reported [facility] Head: Yes normal to inspection, Yes normocephalic and Yes atraumatic Ears: external ears normal Eyes General: appearance normal, both eyes and all related structures Eyelids: Yes eyelids normal Conjunctivae: conjunctivae normal Neck Neck: Yes normal visual inspection and Yes supple Resp Effort & Inspection: normal respiratory effort Auscultation: clear to auscultation bilaterally Cardio Jugular venous distension: no JVD Rate: regular rate Rhythm: regular rhythm Heart sounds: S1 normal heart sound present and S2 normal heart sound present GI Inspection: Yes normal to inspection Palpation (GI): Soft to palpation and nontender Auscultation: normal bowel sounds Skin General skin exam: no rashes or lesions noted Neuro General: no focal motor deficits Extrem General: Yes full ROM Psych Appearance: grossly normal Results AMB Hemoglobin A1c AMB Hemoglobin A1c 6.1 % Last Edit by LAUREN Phan on 02/28/25 17 :03 Results Reviewed Results Reviewed: Laboratory Last Values Hgb A1c (Clinic) 6.1 % (4.0-6.0) H 02/28/25 17:02 Coding Level of Care Code Est Pt Prev Care 40-64y(83509) Diagnoses Encounter for physical examination Z00.00 Time Spent (min) 31 Assessment & Plan Assessment & Plan (1) Encounter for physical examination: Code(s): Z00.00 - Encounter for general adult medical examination without abnormal findings Category: Medical Plan During the visit, we discussed the patient's elevated blood pressure and the current management with lisinopril 40 mg. We also reviewed her elevated blood glucose levels and the plan to check her hemoglobin A1c to assess for diabetes. Preventative care measures, including the recent mammogram and Cologuard test, were also discussed. Repeat physical exam in a year. Orders: Orders Comprehensive [place]. Panel Fast 4 Months I10 - Essential (primary) hypertension AMB Hemoglobin A1c Today Z13.9 - Encounter for screening, unspecified Vitamin D 25-OH Total 4 Months E55.9 - Vitamin D deficiency, unspecified Lipid Panel 4 Months E78.5 - Hyperlipidemia, unspecified
== END 2025-02-28 17:45 | disposition home or self-care (01) ==
LOC: HO.HMCH 15:45
PROVIDERS: PCP Internal Medicine; Visit Provider Internal Medicine
DX: Z13.9 Encounter for screening, unspecified (principal); Z00.00 Encounter for general adult medical examination without abnormal findings

== ENCOUNTER → 2025-02-28 15:44 | Outpatient (BNVA) | payer OTHER, SELFPAY | PROVIDERS: PCP Internal Medicine; Visit Provider Internal Medicine | DX: Z00.00 Encounter for general adult medical examination without abnormal findings (principal); I10 Essential (primary) hypertension; R73.01 Impaired fasting glucose; E55.9 Vitamin D deficiency, unspecified; E78.5 Hyperlipidemia, unspecified | CPT/HCPCS: 83036 ==

== ENCOUNTER 2025-03-09 14:08 | Outpatient (REF) | payer OTHER, SELFPAY ==
--- NOTE | ~2025-03-09 | MM_ITS ---
EXAMINATION: DXA BONE DENSITY AXIAL HISTORY: Z78.0 - Asymptomatic menopausal state TECHNIQUE: [employer] Dual energy absorptiometry (DEXA) of the lumbar spine, total left hip, and femoral neck was performed. COMPARISON: Comparison is made with the prior examination dated 02/21/2023. FINDINGS: The bone mineral density of the lumbar spine is 1.114 g/cm2, corresponding to a T-score of -0.5, and a Z-score of 0.0. This is indicative of normal bone mineral density. This represents a BMD change of 1.5% compared to the prior exam. This is not statistically significant. The bone mineral density of the left total hip is 0.984 g/cm2, corresponding to a T-score of -0.2, and a Z-score of 0.3. This is indicative of normal bone mineral density. This represents a BMD change of 7.8% compared to the prior exam. This is statistically significant. The bone mineral density of the left femoral neck is 0.882 g/cm2, corresponding to a T-score of -1.1, and a Z-score of -0.3. This is indicative of osteopenia. This represents a BMD change of 12.4% compared to the prior exam. FRACTURE RISK: The FRAX index suggests a ten year probability of major osteoporotic fracture of 4.1%, and of hip fracture 0.3%. MM/XR DEXA axial skeleton IMPRESSION: Based on bone mineral density, and according to World Health Organization (WHO) criteria, the diagnosis is consistent with osteopenia. Statistically, 68% of repeat scans fall within 1 SD (+/- 0.010 g/cm2 for AP spine L1-L4) and 1 SD (+/- 0.012 g/cm2 for femur total) FRAX is a trademark of the [employer]'s [place] [facility] Met[employer], a World Health Organization (WHO) Collaborating Center. Electronically signed by: Jadiel Saravia MD 03/09/2025 03:07 PM EDT
== END 2025-03-09 14:09 | disposition home or self-care (01) ==
LOC: HO.MAMMO 14:08
PROVIDERS: PCP Internal Medicine; Visit Provider Internal Medicine
DX: Z13.820 Encounter for screening for osteoporosis (principal); Z78.0 Asymptomatic menopausal state
CPT/HCPCS: 77080

== ENCOUNTER → 2025-03-09 14:30 | Outpatient (BNV) | payer OTHER, SELFPAY | PROVIDERS: PCP Internal Medicine; Visit Provider Radiology Diagnostic Radiology | DX: E28.39 Other primary ovarian failure (principal) | CPT/HCPCS: 77080 ==

== ENCOUNTER 2025-03-26 08:44 | Outpatient (REF) | payer OTHER, SELFPAY ==
--- NOTE | ~2025-03-26 | MM_ITS ---
EXAMINATION: MM SCREENING DIGITAL BREAST TOMOSYNTHESIS, BILATERAL CLINICAL INFORMATION: Screening. Asymptomatic. COMPARISON: Mammography: Comparison is made with available priors TECHNIQUE: Digital breast mammography with tomosynthesis is performed in both the craniocaudal and mediolateral oblique views along with computer-aided detection (CAD). FINDINGS: There are scattered areas of fibroglandular density. There are no significant masses, abnormal calcifications, or other abnormalities. MM/MM tomosynthesis screening BI IMPRESSION: No mammographic evidence of malignancy. ASSESSMENT: BI-RADS Category 1: Negative RECOMMENDATION: Routine annual mammography screening. 1 year F/U This examination should not preclude the clinical evaluation of a suspicious palpable abnormality. This patient's information was entered into a reminder system with a target due date for their next mammogram. Electronically signed by: Johana Mancera DO 03/29/2025 12:39 PM EDT
--- OUTSIDE RECORDS SUMMARY | 2025-03-26 08:50 | XMS_ITS | Patient Health Record ---
Author Organization [facility] Address [address] [place] [address] Care Team Providers Care Visual Merchandising Specialist Name Role Phone Hermilo Garcia MD Primary Care Provider Jadiel Malhotra [phone] Reason For Referral No Information Medications Medication SIG (Take, Route, Fr equency, Duration) Notes Start Date End Date Status MoviPrep 100 GM as directed Orally o nce; Duration: 1 dose 11/15/2011 Active Problems Problem Type SNOMED Code ICD Code Onset Dates Problem Status W/U Status Risk Notes Problem Colon cancer screening (605622162) Colon cancer screening (V76.51) Active confirmed Plan Of Treatment Future Test Test Name Order Date COLONOSCOPY 11/12/2011 Insurance Providers Payer Name Payer Address Payer Phone Subscriber Number Group Number Insured Name Patient Relationship to Insured Coverage Start Date Coverage End Date [facility] [address] [place] [phone] [id number] BOB ROSALES Self - patient is the insured Medical (General) History Medical History History ICD Code Denies UT,DM,CVA,Lung disease,renal dise ase Surgical History Surgery Date(Month/Year) right knee surgery(ligaments) 1996 C-spine surgery 2006
== END 2025-03-26 08:45 | disposition home or self-care (01) ==
LOC: HO.MAMMO 08:44
PROVIDERS: PCP Internal Medicine; Visit Provider Internal Medicine
DX: Z12.31 Encounter for screening mammogram for malignant neoplasm of breast (principal)
CPT/HCPCS: 77063; 77067

== ENCOUNTER → 2025-03-26 09:00 | Outpatient (BNV) | payer OTHER, SELFPAY | PROVIDERS: PCP Internal Medicine; Visit Provider Internal Medicine | DX: Z12.31 Encounter for screening mammogram for malignant neoplasm of breast (principal) | CPT/HCPCS: 77063; 77067 ==